=== PATIENT | male | born 1970 | race Caucasian/White ===

== ENCOUNTER 2018-01-09 13:23 | Emergency (ER) | END 2018-01-09 15:11 | disposition home or self-care (01) ==

== ENCOUNTER 2018-12-01 21:42 | Emergency (ER) | payer OTHER ==
[~2018-12-01] VITALS: Wt 114.0 kg
[~2018-12-01 21:42] MED LIST: AMOX1TAB10 PO; CIPR7.5D BOTH EARS; IBUP-1542 PO
--- NOTE | 2018-12-02 02:53 | ERD ---
ER Documentation Chief Complaint Chief Complaint L knee pain p fall x6d; states increased swelling. HPI 48-year-old male presents with left knee pain for the past 6 days. States that he fell 2 months ago and injured his knee. Also states that he has noticed increased swelling. Denies numbness, tingling, limited range of motion, fevers, chills. Denies past medical history. Denies allergies. Denies medications. Denies surgeries. Denies alcohol, tobacco, drug use. Up to date on vaccines. ROS All systems reviewed and are negative except as per history of present illness. Medications Home Meds Active Scripts Ibuprofen* (Motrin*) 600 Mg Tab, 600 MG PO Q6 for pain, #30 TAB Prov:KATHIE SHEIKHEL 12/02/18 Ibuprofen* (Motrin*) 600 Mg Tab, 600 MG PO Q6H PRN for PAIN AND OR ELEVATED TEMP, #30 TAB Prov:TYRON JUAREZ PA-C 01/09/18 Ciprofloxacin Hcl/Dexameth (Ciprodex Otic Suspension) 7.5 Ml Drops.susp, 4 DROP BOTH EARS BID for 7 Days, EA Prov:TYRON JUAREZ PA-C 01/09/18 Amoxicillin/Potassium Clav (Amox-Clav 875-125 mg Tablet) 875-125 mg Tab, 1 TAB PO BID for 10 Days, #20 TAB Prov:TYRON JUAREZ PA-C 01/09/18 PMhx/Soc Medical and Surgical Hx: pt denies Medical Hx, pt denies Surgical Hx Hx Alcohol Use: Yes Hx Substance Use: No Hx Tobacco Use: No Smoking Status: Former smoker FmHx Family History: No diabetes, No coronary disease, No other Physical Exam Vitals Vital Signs Date Temp Pulse Resp B/P (MAP) Pulse Ox O2 O2 Flow FiO2 Time Delivery Rate 12/02/18 98.5 82 20 138/78 96 Room Air 03:06 (98) 12/01/18 99.1 89 22 96 21:55 Physical Exam Const: No acute distress Resp: Clear to auscultation bilaterally Cardio: Regular rate and rhythm, no murmurs Skin: No petechiae or rashes Ext: Left knee is nontender to palpation with no erythema. Some mild edema noted on the medial aspect of patellar. No crepitus or bony deformity noted. Distal sensation and pulses intact. No cyanosis or pallor. Full range of motion. Neur: Awake and alert Psych: Normal Mood and Affect Procedures/MDM Patient: JORGE OLIVEIRA : 1970 Age: 48 Sex: M MR #: [id number] DOS: 12/02/18 0134 Ordering MD: DELLA SHEIKH Location: [facility] Room/Bed: AMENDMENT: 12/02/2018 2:24:18 AM Mohan Haider M.d PROCEDURE: Ultrasound examination of the left lower extremity with Doppler. CLINICAL INDICATION: Left leg pain and swelling. TECHNIQUE: Multiple sonographic images of the left lower extremity veins were performed with redding scale and color Doppler. COMPARISON: None. FINDINGS: The left common femoral, superficial femoral and popliteal veins demonstrate normal color flow, waveforms, compression and response to augmentation. There is no evidence of deep venous thrombosis. IMPRESSION: No evidence of deep venous thrombosis within the left lower extremity. Physician Monique Date Time Electronically viewed and signed by Physician Monique on 12/02/2018 02:25 RF/ CC: DELLA SHEIKH [phone] DIAGNOSTIC IMAGING REPORT Patient: JORGE OLIVEIRA : 1970 Age: 48 Sex: M MR #: [id number] DOS: 12/02/18 0129 Ordering MD: DELLA SHEIKH Location: E Room/Bed: PROCEDURE: XR left Knee. CLINICAL INDICATION: Left knee pain TECHNIQUE: 3 views of the left knee were obtained. The images reviewed on a PACS workstation. COMPARISON: None. FINDINGS: Osseous structures appear intact without acute fracture seen. Alignment is maintained. Joint space maintained with minor hypertrophic changes. Tiny well- defined ovoid ossific density is seen anterior to the inferior patella on the lateral view, may be sequela from prior injury or enthesopathic changes. Tiny calcification or ossified focus projecting within the lateral compartment on 1 of the frontal views appears to be located posteriorly and may represent the fabella or minimal arterial vascular calcification of incidental note. There is fullness of the suprapatellar soft tissues suggestive of a joint effusion. IMPRESSION: No acute osseous abnormality. Minor degenerative changes without significant joint space narrowing. Nonspecific joint effusion, differential for which could include the possibility of infection. Correlate clinically to guide further workup as clinically indicated. RPTAT: HSAF Oz Haider Physician Date Time Electronically viewed and signed by Oz Haider Physician on 12/02/2018 02:23 RF/ CC: DELLA SHEIKH [id number] 48-year-old male presents with left knee pain for the past 6 days. States that he fell 2 months ago and injured his knee. Also states that he has noticed increased swelling. Denies numbness tingling, limited range of motion, fevers, chills, erythema. X-ray and ultrasound were performed, both were within normal limits. I have low suspicion for DVT, fracture, compartment syndrome, septic joint, compartment syndrome, or other emergent problem. Patient given Rx for ibuprofen and advised to follow-up with Ortho as he may have incured a soft tissue injury that needs to be treated by a specialist. Patient discharged with strict ER precautions. Patient advised to follow up with PMD. All questions answered at discharge. Departure Diagnosis: Primary Impression: Knee injury Encounter type: initial encounter Laterality: left Qualified Codes: S89.92XA - Unspecified injury of left lower leg, initial encounter Additional Impression: Knee pain Chronicity: unspecified Laterality: left Qualified Codes: M25.562 - Pain in left knee Condition: Stable DELLA SHEIKH Dec 02, 2018 02:53
[2018-12-02] MEDS ORDERED: IBUP-1542 PO (02:55)
[2018-12-02 03:06] VITALS: BP 138/78; PULSE 82; RESP 20
== END 2018-12-02 03:07 | disposition home or self-care (01) ==
LOC: FTE 21:42
DX: S89.92XA Unspecified injury of left lower leg, initial encounter (principal); W18.30XA Fall on same level, unspecified, initial encounter; Y92.9 Unspecified place or not applicable; Z87.891 Personal history of nicotine dependence
CPT/HCPCS: 73562; 93971